=== PATIENT | female | born 1985 | race African-American/Black ===

== ENCOUNTER 2019-01-20 15:36 | Emergency (ER) | payer SELFPAY ==
[2019-01-20] MEDS ORDERED: cefTRIAXone\\ROCEPHIN 250 MG VIAL ONE (16:13)
[2019-01-20] MEDS ORDERED: Lidocaine 1% (PF) 30 ML VIAL ONE (16:13)
[2019-01-20] MEDS ORDERED: Azithromycin 250 MG TAB ONE (16:13)
== END 2019-01-20 16:50 | disposition home or self-care (01) ==
LOC: ER/OP 15:36
DX: Z51.89 Encounter for other specified aftercare (principal)
CPT/HCPCS: 96372; J0696; J2001